=== PATIENT | female | born 1970 | race Caucasian/White ===

== ENCOUNTER 2019-01-27 13:19 | Observation (INO) | payer OTHER ==
[~2019-01-27] VITALS: Ht 162.6 cm; Wt 100.0 kg
[2019-01-27 14:10] LABS: BASOPHILS % (AUTO) 0.7 % (0-1); EOSINOPHILS # (AUTO) 0.1 X10'3 (0-0.9); EOSINOPHILS % (AUTO) 1.8 % (0-6); HEMATOCRIT 40.1 % (35.0-45.0); HEMOGLOBIN 13.3 g/dl (12.0-16.0); LYMPHOCYTES # (AUTO) 1.9 X10'3 (1.1-4.8); LYMPHOCYTES % (AUTO) 34.9 % (21-51); MEAN CORPUSCULAR HEMOGLOBIN 30.7 PG (27.0-31.0); MEAN CORPUSCULAR HGB CONC 33.1 g/dL (33.0-36.5); MEAN CORPUSCULAR VOLUME 92.5 FL (78-98); MONOCYTES # (AUTO) 0.6 X10'3 (0-0.9); NEUTROPHILS # (AUTO) 2.8 X10'3 (1.8-7.7); NEUTROPHILS % (AUTO) 51.6 % (42-75); PLATELET COUNT 263 X10'3 (140-440); RED BLOOD COUNT 4.33 X10'6 (4.20-5.60); RED CELL DISTRIBUTION WIDTH 12.9 % (11.5-14.5); WHITE BLOOD COUNT 5.5 X10'3 (4.5-11.0)
[2019-01-27 14:12] LABS: PARTIAL THROMBOPLASTIN TIME 28 SECONDS (22-32)
[2019-01-27 14:32] LABS: ALANINE AMINOTRANSFERASE 30 U/L (12-78); ALBUMIN/GLOBULIN RATIO 1.3 (1.1-1.5); ALKALINE PHOSPHATASE 52 IU/L (46-116); ANION GAP 9 (8-16); ASPARTATE AMINO TRANSFERASE 23 U/L (10-37); BILIRUBIN,TOTAL 0.2 MG/DL (0.1-1.0); BLOOD UREA NITROGEN 10 MG/DL (7-18); BUN/CREATININE RATIO 10.8 (6.6-38.0); CALCIUM 9.3 MG/DL (8.5-10.1); CHLORIDE 103 MMOL/L (99-107); CREATININE 0.93 MG/DL (0.40-0.90); GLUCOSE 102 MG/DL (70-104); SODIUM 140 MMOL/L (135-145); TOTAL CARBON DIOXIDE 28.1 MMOL/L (24-32); eGFR 64 ML/MIN
[2019-01-27] MEDS ORDERED: aspirin 81mg tab.chew PO ONE (16:00)
[2019-01-27] MEDS: nitroGLYCERIN 0.4mg SUBLingual tab SL PRN ×3 (16:41→17:13)
[2019-01-27] MEDS ORDERED: magnesium hydroxide 30ml (MOM) UD suspension PO PRN (16:45)
[2019-01-27] MEDS ORDERED: morphine 2 MG/ML inj. syringe IV PRN ×2 (16:45)
[2019-01-27] MEDS ORDERED: mag hydrox/Alum hydrox/simeth 30ml oral suspension PO PRN (16:45)
[2019-01-27] MEDS ORDERED: HYDROcodone/acetaminophen 5mg/325mg tablet PO PRN (16:45)
[2019-01-27] MEDS ORDERED: regadenoson 0.4mg/5ml syringe IV PRN (16:45)
[2019-01-27] MEDS ORDERED: aminophylline 250mg/10ml inj. IV PRN (16:45)
[2019-01-27] MEDS ORDERED: metoprolol tartrate 1mg/ml inj IV PRN (16:45)
[2019-01-27] MEDS ORDERED: ondansetron/PF 4mg/2ml inj IV PRN (16:45)
[2019-01-27] MEDS ORDERED: acetaminophen 325mg tablet PO PRN (16:45)
[2019-01-27] MEDS ORDERED: nitroGLYCERIN 0.4mg SUBLingual tab SL PRN ×2 (16:45)
--- NOTE | 2019-01-27 17:04 | NUR ---
Pt reports CP 09/11. 2nd dose of SL Nitro given.
[2019-01-27] MEDS ORDERED: HYDR-3972 PO (17:08)
[2019-01-27] MEDS ORDERED: LORA0.5T PO (17:11)
[2019-01-27] MEDS ORDERED: LYR75C PO (17:12)
--- NOTE | 2019-01-27 17:14 | NUR ---
Pt reports pain decreased to 4/10. 3rd dose of Nitro given.
--- NOTE | 2019-01-27 17:23 | NUR ---
RELIEVING RN FOR BREAK, REPORT CALLED TO EDWARD HOPKINS
--- NOTE | 2019-01-27 17:23 | NUR ---
Received report from SANDEEP Rollins in the ED, patient is said to be alert and oriented x4, vitals stable: Hr-87, RR-16, SAO2-98% and BP-145/79. First Trop was negative. Will await patient arrival to the floor.
[2019-01-27 17:45] VITALS: BP 126/68
--- NOTE | 2019-01-27 19:06 | NUR ---
PAGER ID: [phone] MESSAGE: Patient Frida Herring rom [id number], ACCE unit c/o 10/12 CP. NO VTE ordered. Just gave 1 mg Morphine and new EKG. please advise. SANDEEP Byrnes ACCE [id number]. Sent to Dr. Gant
[2019-01-27] MEDS ORDERED: CHOL10002 PO ×2 (19:33→21:27)
[2019-01-27] MEDS ORDERED: BUPR100T13 PO (19:38)
[2019-01-27] MEDS ORDERED: ESTR2TAB PO (19:44)
[2019-01-27] MEDS ORDERED: ATOR40TA71 PO (19:44)
[2019-01-27] MEDS ORDERED: CHOL500026 PO (19:44)
[2019-01-27] MEDS ORDERED: DULO60CA65 PO (19:49)
[2019-01-27] MEDS ORDERED: TOFA5TAB PO (19:49)
[2019-01-27] MEDS ORDERED: AMIT100T2 PO (19:49)
[2019-01-27] MEDS ORDERED: CALC600T18 PO (19:49)
[2019-01-27] MEDS ORDERED: CHOLECALCIFEROL PO SCH (20:50)
[2019-01-27] MEDS ORDERED: CALCIUM CARBONATE PO SCH (21:00)
[2019-01-27] MEDS ORDERED: atorvastatin 20mg tablet PO SCH (21:34)
[2019-01-27] MEDS ORDERED: CALC500T55 PO (21:48)
[2019-01-27] MEDS ORDERED: amitriptyline 50mg tablet PO SCH (21:50)
[2019-01-27 22:00] VITALS: BP 129/64
[2019-01-27] MEDS: buPROPion 100mg tablet PO SCH (22:14)
[2019-01-27] MEDS: pregabalin 75mg capsule PO SCH (22:14)
[2019-01-27] MEDS: heparin, porcine 5000 units/ml vial SQ SCH (22:30)
[2019-01-28] VITALS (11 sets, daily range): BP systolic 117–135; BP diastolic 61–74
[2019-01-28 01:51] LABS: BASOPHILS % (AUTO) 0.5 % (0-1); EOSINOPHILS # (AUTO) 0.1 X10'3 (0-0.9); EOSINOPHILS % (AUTO) 1.9 % (0-6); HEMATOCRIT 37.4 % (35.0-45.0); HEMOGLOBIN 12.7 g/dl (12.0-16.0); LYMPHOCYTES # (AUTO) 1.4 X10'3 (1.1-4.8); LYMPHOCYTES % (AUTO) 25.7 % (21-51); MEAN CORPUSCULAR HEMOGLOBIN 31.1 PG (27.0-31.0); MEAN CORPUSCULAR VOLUME 91.5 FL (78-98); MEAN PLATELET VOLUME 8.2 FL (7.4-10.4); MONOCYTES # (AUTO) 0.5 X10'3 (0-0.9); MONOCYTES % (AUTO) 9.7 % (2-12); NEUTROPHILS # (AUTO) 3.3 X10'3 (1.8-7.7); NEUTROPHILS % (AUTO) 62.2 % (42-75); PLATELET COUNT 257 X10'3 (140-440); RED BLOOD COUNT 4.09 X10'6 (4.20-5.60); WHITE BLOOD COUNT 5.3 X10'3 (4.5-11.0)
[2019-01-28 02:08] LABS: ALBUMIN 3.7 G/DL (3.4-5.0); ANION GAP 6 (8-16); BLOOD UREA NITROGEN 11 MG/DL (7-18); BUN/CREATININE RATIO 12.8 (6.6-38.0); CALCIUM 8.7 MG/DL (8.5-10.1); CHLORIDE 104 MMOL/L (99-107); CREATININE 0.86 MG/DL (0.40-0.90); GLUCOSE 135 MG/DL (70-104); POTASSIUM 3.7 MMOL/L (3.5-5.1); SODIUM 141 MMOL/L (135-145); eGFR 70 ML/MIN
--- NOTE | 2019-01-28 06:27 | NUR ---
Problems reprioritized. Patient report given, questions answered & plan of care reviewed with SANDEEP Sanchez.
--- NOTE | 2019-01-28 06:37 | NUR ---
I have received report from SANDEEP Byrnes and had the opportunity to ask questions and assume patient care.
--- NOTE | 2019-01-28 06:39 | NUR ---
Problems reprioritized. Patient report given, questions answered & plan of care reviewed with SANDEEP Hector.
[2019-01-28 07:19] LABS: MAGNESIUM 2.2 MG/DL (1.5-2.4)
[2019-01-28] MEDS ORDERED: duloxetine 30mg CAPSULE.DR PO SCH (08:00)
[2019-01-28] MEDS ORDERED: LORazepam 0.5 MG tablet PO PRN (08:00)
[2019-01-28] MEDS ORDERED: vitamin D (cholecalciferol) 1,000 unit tablet PO SCH (08:00)
[2019-01-28] MEDS ORDERED: estradiol 1mg tablet PO SCH (08:00)
[2019-01-28] MEDS: buPROPion 100mg tablet PO SCH (09:15)
[2019-01-28] MEDS: HYDROcodone/acetaminophen 10/325mg tab PO PRN ×2 (09:17→14:10)
[2019-01-28] MEDS: pregabalin 75mg capsule PO SCH (09:18)
[2019-01-28] MEDS: calcium carbonate 500mg tablet PO SCH ×2 (09:18→12:30)
[2019-01-28] MEDS: heparin, porcine 5000 units/ml vial SQ SCH (09:20)
[2019-01-28] MEDS ORDERED: pneumococcal 23-VAL P-sac vacc 25 mcg/0.5ml vial IMVAC ONE (10:00)
--- NOTE | 2019-01-28 15:59 | NUR ---
reviewed all discharge instructions and medications,no new prescriptions,pt aware of need for f/u appt with PMD,iv dc'd rfa,site clear,pt dc'd via w.c. with all belonging
== END 2019-01-28 15:57 | disposition home or self-care (01) ==
LOC: ER 13:19 → MED 3N 17:45
PROVIDERS: ADMIT Internal Medicine; ATTEND Internal Medicine
DX: R07.89 Other chest pain (principal); E03.9 Hypothyroidism, unspecified; M79.7 Fibromyalgia; J43.9 Emphysema, unspecified; F12.90 Cannabis use, unspecified, uncomplicated; F41.9 Anxiety disorder, unspecified; Z87.891 Personal history of nicotine dependence; Z96.659 Presence of unspecified artificial knee joint; Z90.710 Acquired absence of both cervix and uterus; Z23 Encounter for immunization; Z79.899 Other long term (current) drug therapy; Z88.0 Allergy status to penicillin
CPT/HCPCS: 36415; 71045; 78452; 80048; 80053; 83735; 83880; 84100; 84484; 85025; 85379; 85610; 85730; 87081; 90732; 93005; 93017; 93306; 96372; 96374; 99284; A9500; G0378; J0280; J1644; J2270; J2785

== ENCOUNTER 2021-09-11 15:04 | Inpatient (IN) | payer OTHER ==
[~2021-09-11] VITALS: Ht 162.6 cm; Wt 84.1 kg
[~2021-09-11 15:04] MED LIST: AMIT100T2 PO; ATOR40TA71 PO; BUPR100T13 PO; CALC500T55 PO; CHOL10002 PO; DULO60CA65 PO; ESTR2TAB50 PO; HYDR-3972 PO; LORA0.5T PO; LYR75C PO; TOFA5TAB PO
--- NOTE | 2021-09-11 18:47 | NUR ---
vascular on it way in
[2021-09-11] MEDS ORDERED: ibuprofen 200mg tablet PO ONE (20:20)
[2021-09-11 20:52] LABS: BASOPHILS % (AUTO) 0.5 % (0-1); EOSINOPHILS % (AUTO) 0.9 % (0-6); HEMATOCRIT 33.6 % (35.0-45.0); LYMPHOCYTES # (AUTO) 0.6 X10'3 (1.1-4.8); LYMPHOCYTES % (AUTO) 11.7 % (21-51); MEAN CORPUSCULAR HGB CONC 32.8 g/dL (33.0-36.5); MEAN CORPUSCULAR VOLUME 91.7 FL (78-98); MEAN PLATELET VOLUME 7.3 FL (7.4-10.4); MONOCYTES # (AUTO) 0.4 X10'3 (0-0.9); MONOCYTES % (AUTO) 7.9 % (2-12); NEUTROPHILS # (AUTO) 3.8 X10'3 (1.8-7.7); PLATELET COUNT 401 X10'3 (140-440); RED BLOOD COUNT 3.66 X10'6 (4.20-5.60); RED CELL DISTRIBUTION WIDTH 13.7 % (11.5-14.5); WHITE BLOOD COUNT 4.8 X10'3 (4.5-11.0)
[2021-09-11 21:04] LABS: ALANINE AMINOTRANSFERASE 117 U/L (12-78); ALBUMIN 3.4 G/DL (3.4-5.0); ALBUMIN/GLOBULIN RATIO 0.9 (1.1-1.5); ALKALINE PHOSPHATASE 200 IU/L (46-116); ANION GAP 7 (8-16); ASPARTATE AMINO TRANSFERASE 31 U/L (10-37); BILIRUBIN,TOTAL 0.4 MG/DL (0.1-1.0); BLOOD UREA NITROGEN 14 MG/DL (7-18); BUN/CREATININE RATIO 18.4 (6.6-38.0); C-REACTIVE PROTEIN 7.61 MG/DL (0.0-0.5); CALCIUM 8.8 MG/DL (8.5-10.1); CHLORIDE 98 MMOL/L (99-107); CREATININE 0.76 MG/DL (0.40-0.90); GLUCOSE 119 MG/DL (70-104); POTASSIUM 4.1 MMOL/L (3.5-5.1); SODIUM 134 MMOL/L (135-145); TOTAL CARBON DIOXIDE 29.2 MMOL/L (24-32); eGFR 80 ML/MIN
[2021-09-11] MEDS ORDERED: vancomycin/NS 1 GM ADD-VANTAGE 250 ML IV ONE (21:50)
[2021-09-11] MEDS ORDERED: magnesium hydroxide 30ml (MOM) UD suspension PO PRN (22:30)
[2021-09-11] MEDS ORDERED: ondansetron/PF 4mg/2ml inj IV PRN (22:30)
[2021-09-11] MEDS ORDERED: mag hydrox/Alum hydrox/simeth 30ml oral suspension PO PRN (22:30)
[2021-09-11] MEDS ORDERED: morphine 2 MG/ML inj. syringe IV PRN (22:30)
[2021-09-11] MEDS ORDERED: HYDROcodone/acetaminophen 5mg/325mg tablet PO PRN (22:30)
[2021-09-11] MEDS ORDERED: acetaminophen 325mg tablet PO PRN ×2 (22:30)
[2021-09-12] MEDS: morphine 2 MG/ML inj. syringe IV PRN ×2 (01:25→08:13)
[2021-09-12 02:22] LABS: BASOPHILS % (AUTO) 0.6 % (0-1); EOSINOPHILS % (AUTO) 1.2 % (0-6); HEMATOCRIT 31.4 % (35.0-45.0); HEMOGLOBIN 10.7 g/dl (12.0-16.0); LYMPHOCYTES # (AUTO) 0.5 X10'3 (1.1-4.8); LYMPHOCYTES % (AUTO) 15.1 % (21-51); MEAN CORPUSCULAR HEMOGLOBIN 31.3 PG (27.0-31.0); MEAN CORPUSCULAR HGB CONC 34.3 g/dL (33.0-36.5); MEAN CORPUSCULAR VOLUME 91.4 FL (78-98); MEAN PLATELET VOLUME 6.9 FL (7.4-10.4); MONOCYTES # (AUTO) 0.4 X10'3 (0-0.9); MONOCYTES % (AUTO) 13.2 % (2-12); NEUTROPHILS # (AUTO) 2.2 X10'3 (1.8-7.7); NEUTROPHILS % (AUTO) 69.9 % (42-75); PLATELET COUNT 399 X10'3 (140-440); RED BLOOD COUNT 3.43 X10'6 (4.20-5.60); RED CELL DISTRIBUTION WIDTH 13.5 % (11.5-14.5); WHITE BLOOD COUNT 3.1 X10'3 (4.5-11.0)
[2021-09-12 02:30] LABS: ALBUMIN 3.2 G/DL (3.4-5.0); ANION GAP 9 (8-16); BLOOD UREA NITROGEN 13 MG/DL (7-18); BUN/CREATININE RATIO 15.1 (6.6-38.0); CALCIUM 8.8 MG/DL (8.5-10.1); CHLORIDE 100 MMOL/L (99-107); CREATININE 0.86 MG/DL (0.40-0.90); GLUCOSE 144 MG/DL (70-104); POTASSIUM 3.8 MMOL/L (3.5-5.1); SODIUM 137 MMOL/L (135-145); TOTAL CARBON DIOXIDE 28.4 MMOL/L (24-32); eGFR 69 ML/MIN
--- NOTE | 2021-09-12 06:54 | NUR ---
Received report from HUMANE OFFICER
[2021-09-12] MEDS: HYDROcodone/acetaminophen 10/325mg tab PO PRN ×2 (07:12→11:47)
--- NOTE | 2021-09-12 07:22 | NUR ---
PAGER ID: [phone] MESSAGE: Ortho/Neuro, can you please address med rec of [id number], and [id number], thank you!!! Lili [phone]
[2021-09-12] MEDS ORDERED: docusate sod 100mg capsule PO SCH (08:00)
[2021-09-12] MEDS ORDERED: normal saline 1000ml 1,000 ML IV SCH (08:05)
[2021-09-12] MEDS ORDERED: LORazepam 0.5 MG tablet PO PRN (08:35)
[2021-09-12 09:57] VITALS: BP 121/63
[2021-09-12] MEDS ORDERED: vancomycin/NS 1 GM ADD-VANTAGE 250 ML IV SCH (10:00)
--- NOTE | 2021-09-12 10:36 | NUR ---
Spoke to hospitalist about knee wrap to provide compression and help reduce swelling he agrees with this
--- NOTE | 2021-09-12 12:14 | NUR ---
Awaiting clearance from Ortho MD before discharge to home.
[2021-09-12] MEDS ORDERED: calcium carbonate 500mg chew tablet PO SCH (13:00)
[2021-09-12] MEDS ORDERED: HYDROcodone/acetaminophen 10/325mg tab PO SCH (13:00)
--- NOTE | 2021-09-12 13:03 | NUR ---
Patient discharged to home via wheelchair to private vehicle in stable condition. 18 gauge iv removed from left ac, cannula intact no complications. All instructions given to both patient and patients who was present at the bedside. No new medications on discharge.
[2021-09-12] MEDS ORDERED: TOFACITINIB CITRATE 5 MG PO SCH (20:00)
[2021-09-12] MEDS ORDERED: buPROPion 100mg tablet PO SCH (20:00)
[2021-09-12] MEDS ORDERED: pregabalin 75mg capsule PO SCH (20:00)
[2021-09-12] MEDS ORDERED: atorvastatin 20mg tablet PO SCH (21:00)
[2021-09-12] MEDS ORDERED: amitriptyline 50mg tablet PO SCH (21:00)
[2021-09-13] MEDS ORDERED: duloxetine 30mg CAPSULE.DR PO SCH (08:00)
[2021-09-13] MEDS ORDERED: estradiol 1mg tablet PO SCH (08:00)
[2021-09-13] MEDS ORDERED: cholecalciferol (vitamin D3) 1,000 unit (25mcg) tablet PO SCH (08:00)
[2021-09-13] MEDS ORDERED: VANCOMYCIN LEVEL IV ONE (09:30)
== END 2021-09-12 13:05 | disposition home health service (06) | DRG 948 ==
LOC: ER 15:05 → ED HOLD 22:40 → ORTHO 4S 09-12 07:00
PROVIDERS: ADMIT Internal Medicine; ATTEND Family Medicine
DX: R60.9 Edema, unspecified (principal); L03.115 Cellulitis of right lower limb; M06.9 Rheumatoid arthritis, unspecified; E78.5 Hyperlipidemia, unspecified; Z96.651 Presence of right artificial knee joint; F32.A Depression, unspecified; F41.9 Anxiety disorder, unspecified; Z90.710 Acquired absence of both cervix and uterus; Z79.899 Other long term (current) drug therapy; Z88.0 Allergy status to penicillin; Z88.2 Allergy status to sulfonamides; Z88.8 Allergy status to other drugs, medicaments and biological substances; Z86.718 Personal history of other venous thrombosis and embolism
CPT/HCPCS: 36415; 73700; 80048; 80053; 83605; 84145; 85025; 85651; 86140; 87040; 87081; 93971; 96365; 99285; G0378; J2270; J2405; J3370; J7030

== ENCOUNTER 2023-01-23 18:03 | Emergency (ER) | payer OTHER ==
[~2023-01-23] VITALS: Ht 162.6 cm; Wt 99.2 kg
[2023-01-23 18:21] VITALS: BP 137/73; PULSE 95; RESP 18; O2SAT 100
[2023-01-23 20:29] VITALS: TEMP 99.9
== END 2023-01-23 22:06 | disposition left against medical advice (07) ==
LOC: ER 18:04
DX: R50.9 Fever, unspecified (principal); Z53.21 Procedure and treatment not carried out due to patient leaving prior to being seen by health care provider
CPT/HCPCS: 99281

== ENCOUNTER 2024-12-25 15:23 | Emergency (ER) | payer OTHER ==
[~2024-12-25] VITALS: Ht 162.6 cm; Wt 103.0 kg
--- NOTE | 2024-12-25 15:41 | Physician Documentation ---
History of Present Illness ~ Chief Complaint: Post-operative complication Stated Complaint: POST OP COMPLICATIONS Time Seen by MD: 16:26 OK to notify your PCP?: Yes Source: patient Mode of Arrival: POV Exam Limitations: no limitations HPI 54-year-old female presents with new redness and warmth to the medial portion of her right leg which was noticed today by the wound care nurse. She had knee revision surgery down at [facility] past Friday and was given vancomycin during the surgery and azithromycin. Today the wound care nurse was changing her bandage and noticed that she is now developing this redness and warmth. She denies any fevers or increased pain in this leg. She is currently not taking any antibiotics. Tetanus within 5 years?: No Medication Reconciliation Allergies: Coded Allergies: Penicillins (Unverified Allergy, Unknown, ANAPHYLAXIS, 01/23/23) Sulfa (Sulfonamide Antibiotics) (Unverified Allergy, Unknown, HIVES, 01/23/23) cephalexin (Unverified Allergy, Unknown, HIVES, 01/23/23) Scheduled Amitriptyline Hcl (Amitriptyline Hcl), 1 TAB PO HS, (Reported) Atorvastatin Calcium (Atorvastatin Calcium), 1 TAB PO HS, (Reported) Bupropion HCl (Bupropion HCl), 200 MG PO BID, (Reported) Calcium Carbonate (Calcium Carbonate), 2 TAB PO TID, (Reported) Cholecalciferol (Vitamin D3) (Vitamin D3), 3 TAB PO DAILY, (Reported) Duloxetine HCl (Duloxetine HCl), 2 CAP PO DAILY, (Reported) Estradiol (Estradiol), 0.5 TAB PO DAILY, (Reported) Hydrocodone Bit/Acetaminophen (Hydrocodon-Acetaminophn 10-325 tablet), 1 TAB PO TID, (Reported) Levofloxacin (Levofloxacin), 1 TAB PO DAILY Pregabalin (LYRICA capsule), 1 CAP PO Q12H, (Reported) Tofacitinib Citrate (Xeljanz), 1 TAB PO Q12H, (Reported) Scheduled PRN Lorazepam* (Ativan*), 1 TAB PO BID PRN for for anxiety/agitation, (Reported) Past Medical History Past Medical History: Deep Vein Thrombosis, Cellulitis Past Surgical History: hysterectomy, orthopedic surgeries Drug Use: none Lives In: Home Review of Systems All Other Systems at this time: Reviewed and Negative Physical Exam Vital Signs: RN Vital Signs have been reviewed: Yes Pulse Oximetry Reflects: adequate oxygenation Physical Exam General: Alert, no distress. HEENT: No injection, moist mucous membranes. Neck: Full range of motion. Respiratory: No respiratory distress, equal chest rise and fall. Chest: No accessory muscle use. Cardiovascular: Regular rate and rhythm. Gastrointestinal: Nondistended. Extremities: Right leg bandaging and knee immobilizer in place Neurologic: Oriented x4. Psychiatric: Normal mood and affect. Skin: The patient has a an area of eight by cm of erythema and slight warmth medial to her patella on the right knee the suture line was midline looks clean without any purulent drainage Progress Results/Orders Results/Orders Completed Orders - LILLI REAGAN MD Levofloxacin 750mg Tablet (Levaquin 750m (12/25/24 16:25) Vital Signs 12/25/24 12/25/24 12/25/24 12/25/24 15:28 16:16 16:29 16:48 Temp 98.5 99.6 Pulse 104 95 95 Resp 18 14 14 14 B/P (MAP) 137/64 (88) 137/64 Pulse Ox 96 96 95 O2 Flow Rate 0 0 Medical Decision Making Findings Patient with slight erythema medial to her total knee surgical site the patient is allergic to penicillin as well as Septra given these allergies the patient will be given Levaquin and advised to follow up with the orthopedic surgeon next week. She is otherwise well-appearing and nontoxic. The patient was initially seen as a medical screening by the [facility]level and Dr. Reagan examined the patient and have decided on the disposition and diagnosis. Departure Time of Disposition: 16:27 Disposition: 01 HOME / SELF CARE / HOMELESS Impression: Primary Impression: Cellulitis Qualified Codes: L03.115 - Cellulitis of right lower limb Discharge Instructions: Cellulitis, Adult Additional Instructions: Call the orthopedic surgeon on Friday, return for any worsening of your symptoms or if you develop fevers or chills. Referrals: NO PRIMARY CARE PROVIDER (PCP) Prescriptions Levofloxacin (Levofloxacin) 750 Mg Tablet 1 TAB PO DAILY for 10 Days, #10 TAB Prov: LILLI REAGAN MD 12/25/24 Additional Comment Medical Screen Exam This patient recieved a medical screening examination. After reviewing the individual's medical complaints with presenting symptoms and performing an appropriate physical examination, it was determined that no immediate life- threatening emergency medical condition is present. This individual is also not a women having contractions. Signature Scribe Signature: no scribe Attestation: The note accurately reflects work and decisions made by me.Lilli Reagan MD 12/27/24 05:52 KEYONA BENAVIDEZ Dec 25, 2024 15:41 LILLI REAGAN MD Dec 25, 2024 16:28
[2024-12-25] MEDS ORDERED: LEVO750T68 PO (16:28)
[2024-12-25 16:29] VITALS: TEMP 99.6
[2024-12-25] MEDS: levoFLOXACIN 750MG TABLET PO ONE (16:32)
[2024-12-25 16:48] VITALS: BP 137/64; PULSE 95; RESP 14; O2SAT 95
== END 2024-12-25 16:50 | disposition home or self-care (01) ==
LOC: ER 15:23
DX: L03.115 Cellulitis of right lower limb (principal); Z88.0 Allergy status to penicillin; Z88.1 Allergy status to other antibiotic agents; Z88.2 Allergy status to sulfonamides; Z88.8 Allergy status to other drugs, medicaments and biological substances; Z90.710 Acquired absence of both cervix and uterus
CPT/HCPCS: 99283